=== PATIENT | male | born 1985 | race Hispanic/Latino ===

== ENCOUNTER 2019-04-26 09:25 | Outpatient (CLI) | payer OTHER ==
--- NOTE | 2019-04-26 11:33 | RAD ---
LUMBAR SPINE SERIES THREE VIEWS WITH FLEXION AND EXTENSION: HISTORY: Back pain. FINDINGS: There is a pars defect at L5-S1. There is very limited motion on these flexion or extension views. I do not see any abnormal motion at the L5-S1 level. 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 POS: [facility]
--- NOTE | 2019-04-26 11:34 | RAD ---
CERVICAL SPINE SERIES THREE VIEWS WITH FLEXION AND EXTENSION: FINDINGS: The vertebral bodies are normal in height. Disk spaces are well preserved. No abnormal motion in flex ion or extension views. IMPRESSION: No abnormal motion seen on flexion or extension. POS: [facility]
== END 2019-04-26 09:26 | disposition home or self-care (01) ==
LOC: EDBD 09:25 → TBSIIMAG 09:25
PROVIDERS: ATTEND Neurological Surgery
DX: M54.2 Cervicalgia (principal); M54.5 Low back pain; M47.817 Spondylosis without myelopathy or radiculopathy, lumbosacral region
CPT/HCPCS: 72040; 72100

== ENCOUNTER 2019-04-29 00:05 | Emergency (ER) | payer OTHER | END 2019-04-29 00:48 | disposition home or self-care (01) | LOC: SCSER 00:05 | DX: K91.840 Postprocedural hemorrhage of a digestive system organ or structure following a digestive system procedure (principal); F41.9 Anxiety disorder, unspecified; Z87.891 Personal history of nicotine dependence | CPT/HCPCS: 99283 ==